=== PATIENT | female | born 1980 | race Caucasian/White ===

== ENCOUNTER 2016-06-16 11:59 | Emergency (ER) | payer SELFPAY ==
[2013-10-15 07:26] VITALS: BMI 42.5
[~2016-06-16 11:59] MED LIST: FLOVENT DISKU100 MCG INH; HYDROCODON-ACE1 EAC7 PO; INDERAL 40 MG T40 MG PO; PRINIVIL20 MG PO; VENTOLIN HFA18 GM INH
== END 2016-06-16 16:35 | disposition home or self-care (01) ==
LOC: D.ER 11:59
DX: S02.2XXA Fracture of nasal bones, initial encounter for closed fracture (principal); W18.11XA Fall from or off toilet without subsequent striking against object, initial encounter; Y93.89 Activity, other specified; Y92.89 Other specified places as the place of occurrence of the external cause; S02.401A Maxillary fracture, unspecified side, initial encounter for closed fracture; J45.909 Unspecified asthma, uncomplicated; K75.9 Inflammatory liver disease, unspecified; E28.2 Polycystic ovarian syndrome; F25.9 Schizoaffective disorder, unspecified

== ENCOUNTER 2017-07-02 13:39 | Emergency (ER) | payer MEDICAID ==
[2013-10-15 07:26] VITALS: BMI 42.5
[2017-07-02 14:23] LABS: BASOPHILS 0.2 % (0-2); EOSINOPHILS 1.8 % (0-7); HEMATOCRIT 46.6 % (36.0-48.0); HEMOGLOBIN 16.6 g/dL (12-16); IMMATURE GRANULOCYTES 0.4 % (0-5); LYMPHOCYTES 34.9 % (15-50); MCHC 35.6 g/dL (31.0-37.0); MCV 86.9 fL (80.0-100.0); MEAN PLATELET VOLUME 9.1 fL (7.4-10.4); MONOCYTES 11.1 % (2-11); NEUTROPHILS 51.6 % (40-80); PLATELET COUNT 268 10x3/uL (130-400); RBC 5.36 10x6/uL (4.00-5.40); RDW 12.5 % (11.5-14.5); WBC 10.6 10x3/uL (4.8-10.8)
[2017-07-02 14:29] LABS: APPEARANCE CLEAR (CLEAR); BILIRUBIN NEGATIVE (NEGATIVE); COLOR YELLOW (YELLOW); GLUCOSE NEGATIVE (NEGATIVE); KETONE NEGATIVE (NEGATIVE); NITRITE NEGATIVE (NEGATIVE); PROTEIN NEGATIVE (NEGATIVE); SPECIFIC GRAVITY 1.015 (1.005-1.020); UROBILINOGEN NORMAL (NORMAL)
[2017-07-02 14:30] LABS: BACTERIA MODERATE /hpf (NONE SEEN); RED CELLS - URINE 0-5 /hpf (0-5); WHITE CELLS - URINE 0-5 /hpf (0-5)
[2017-07-02 14:31] LABS: MUCUS <1+ /lpf (NONE SEEN)
[2017-07-02 14:36] LABS: ALBUMIN 4.3 g/dL (3.4-5.0); ALKALINE PHOSPHATASE 158 U/L (46-116); ALT (SGPT) 42 U/L (10-68); AMYLASE - SERUM 18 U/L (25-115); BILIRUBIN - TOTAL 0.74 mg/dL (0.2-1.3); CALC OSMOLALITY 274 mosm/kg (275-300); CALCIUM 9.8 mg/dL (8.5-10.1); CARBON DIOXIDE 29.1 mmol/L (21.0-32.0); CHLORIDE - SERUM 99 mmol/L (98-107); CREATININE - SERUM 0.8 mg/dL (0.6-1.3); GLUCOSE 122 mg/dL (74-106); LIPASE 85 U/L (73-393); POTASSIUM - SERUM 4.1 mmol/L (3.5-5.1); PROTEIN - SERUM 8.3 g/dL (6.4-8.2); SODIUM 138 mmol/L (136-145); UREA NITROGEN 8 mg/dL (7-18); eGFR NON AFRICAN AMERICAN 85 mL/min (90-120)
[2017-07-02 15:25] LABS: UDS - AMPHET POSITIVE QUAL (NEGATIVE); UDS - BARB NEGATIVE QUAL (NEGATIVE); UDS - BENZO NEGATIVE QUAL (NEGATIVE); UDS - COCAINE NEGATIVE QUAL (NEGATIVE); UDS - OPIATE POSITIVE QUAL (NEGATIVE); UDS - PCP NEGATIVE QUAL (NEGATIVE); UDS - THC NEGATIVE QUAL (NEGATIVE)
== END 2017-07-02 17:08 | disposition home or self-care (01) ==
LOC: D.ER 13:39
PROVIDERS: Family Medicine
DX: A08.4 Viral intestinal infection, unspecified (principal); F17.200 Nicotine dependence, unspecified, uncomplicated

== ENCOUNTER 2019-09-03 11:52 | Emergency (ER) | payer MEDICAID ==
[~2019-09-03] VITALS: Ht 165.1 cm; Wt 109.1 kg
[2019-09-03 11:59] VITALS: Ht 165.1 cm; Wt 109.1 kg
[2019-09-03] MEDS ORDERED: PROTONIX40 MG PO (12:01)
[2019-09-03] MEDS ORDERED: TRILEPTAL600 MG PO (12:01)
[2019-09-03] MEDS ORDERED: METHOCARBAMOL750 MG PO (12:02)
[2019-09-03] MEDS ORDERED: NEURONTIN 300300 MG PO (12:02)
[2019-09-03] MEDS ORDERED: KLONOPIN0.5 MG PO (12:03)
[2019-09-03] MEDS ORDERED: REMERON30 MG PO (12:03)
[2019-09-03] MEDS ORDERED: CLEOCIN HCL300 MG PO (12:52)
[2019-09-03] MEDS ORDERED: DICLOFENAC SODI50 MG PO (12:52)
[2019-09-03 13:55] VITALS: BP 127/71
== END 2019-09-03 13:57 | disposition home or self-care (01) ==
LOC: D.ER 11:52
DX: G89.18 Other acute postprocedural pain (principal); M79.644 Pain in right finger(s); L08.9 Local infection of the skin and subcutaneous tissue, unspecified; Z86.73 Personal history of transient ischemic attack (TIA), and cerebral infarction without residual deficits; I10 Essential (primary) hypertension; J45.909 Unspecified asthma, uncomplicated

== ENCOUNTER 2020-06-01 04:22 | Emergency (ER) | payer MEDICAID ==
[~2020-06-01] VITALS: Ht 165.1 cm; Wt 106.6 kg
[~2020-06-01 04:22] MED LIST changes: +CLEOCIN HCL300 MG PO; +DICLOFENAC SODI50 MG PO; +KLONOPIN0.5 MG PO; +METHOCARBAMOL750 MG PO; +NEURONTIN 300300 MG PO; +PROTONIX40 MG PO; +REMERON30 MG PO; +TRILEPTAL600 MG PO
[2020-06-01 04:27] VITALS: BP 165/88; Ht 165.1 cm; Wt 106.6 kg
[2020-06-01] MEDS ORDERED: MUPIROCIN22 GM TOPICAL (05:02)
== END 2020-06-01 05:47 | disposition home or self-care (01) ==
LOC: D.ER 04:22
DX: S50.811A Abrasion of right forearm, initial encounter (principal); I10 Essential (primary) hypertension; K21.9 Gastro-esophageal reflux disease without esophagitis; X58.XXXA Exposure to other specified factors, initial encounter

== ENCOUNTER 2020-06-28 19:10 | Emergency (ER) | payer MEDICAID ==
[~2020-06-28] VITALS: Ht 165.1 cm; Wt 104.5 kg
[~2020-06-28 19:10] MED LIST changes: +MUPIROCIN22 GM TOPICAL
[2020-06-28 19:11] VITALS: Ht 165.1 cm; Wt 104.5 kg
[2020-06-28] MEDS ORDERED: VOLTAREN75 MG PO (19:56)
[2020-06-28 21:15] VITALS: BP 136/98
== END 2020-06-28 21:15 | disposition home or self-care (01) ==
LOC: D.ER 19:10
DX: S16.1XXA Strain of muscle, fascia and tendon at neck level, initial encounter (principal); S30.0XXA Contusion of lower back and pelvis, initial encounter; S50.00XA Contusion of unspecified elbow, initial encounter; M54.6 Pain in thoracic spine; M54.5 Low back pain; S09.90XA Unspecified injury of head, initial encounter; I10 Essential (primary) hypertension; Z86.73 Personal history of transient ischemic attack (TIA), and cerebral infarction without residual deficits; J45.909 Unspecified asthma, uncomplicated; K21.9 Gastro-esophageal reflux disease without esophagitis; Z72.0 Tobacco use; W01.10XA Fall on same level from slipping, tripping and stumbling with subsequent striking against unspecified object, initial encounter; Y93.9 Activity, unspecified; Y92.9 Unspecified place or not applicable